=== PATIENT | female | born 1980 | race Caucasian/White ===

== ENCOUNTER 2016-08-26 08:33 | Observation (INO) | payer OTHER, SELFPAY ==
[2016-08-26 08:34] VITALS: BMI 25.9
[2016-08-26 08:42] VITALS: O2SAT 100
--- NOTE | 2016-08-26 09:03 | C.PDOC ---
History Of Present Illness 35 yr old female presents to the ER with complaints of RUQ pain for the past several months but states it has been "more severe" since 299. Patient states initially felt mid back but now is localized to the RUQ. Also reports of bilious vomiting. Patient denies fever, chest pain, SOB, diarrhea, constipation , dysuria, hematuria, weakness or numbness. VIA TRANS INTERMIT RUQ PAIN X SEV MONTHS, "MORE SEVERE" SINCE 299. PS INITIALLY FELT MID BACK, NOW LOCALIZED RUQ. +BILIOUS VOMITING. NO FEVER. PSH CSECT. 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 History/Exam Limitations: no limitations, language barrier (Mongolian ) Onset/Duration Of Symptoms: Persistent (several month ), Worse Since (299 today ) Current Symptoms Are (Timing): Still Present Location Of Pain/Discomfort: RUQ Past Medical History Reviewed: Historical Data, Nursing Documentation, Vital Signs Vital Signs: Last Vital Signs Temp 98.6 F 08/26/16 08:40 Pulse 71 08/26/16 11:21 Resp 13 08/26/16 11:21 BP 121/75 08/26/16 11:21 Pulse Ox 100 08/26/16 11:21 - [facility] Procedures LOW CERVICAL (04/16/13) Family History: States: No Known Family Hx - Social History Hx Alcohol Use: Yes Hx Substance Use: No Review Of Systems Except As Marked, All Systems Reviewed And Found Negative. Constitutional: Negative for: Fever Cardiovascular: Negative for: Chest Pain Respiratory: Negative for: Shortness of Breath Gastrointestinal: Positive for: Vomiting, Abdominal Pain (RUQ). Negative for: Diarrhea, Constipation Genitourinary: Negative for: Dysuria, Hematuria Neurological: Negative for: Weakness, Numbness Physical Exam - Physical Exam Appears: Non-toxic, In Acute Distress (Mild) Skin: Warm, Dry, No Rash Head: Atraumatic, Normacephalic Oral Mucosa: Moist Throat: Normal, No Erythema, No Exudate Chest: Symmetrical, No Tenderness Cardiovascular: Rhythm Regular, No Murmur Gastrointestinal/Abdominal: Soft, Tenderness (Mild RUQ tenderness), No Guarding , No Rebound Back: Normal Inspection, No CVA Tenderness, No Paraspinal Tenderness Extremity: Normal ROM, No Swelling Neurological/Psych: Oriented x3, Normal Speech, Normal Motor, Normal Sensation ED Course And Treatment - Laboratory Results Result Diagrams: 08/26/16 09:39 08/26/16 09:39 O2 Sat by Pulse Oximetry: 100 - CT Scan/US US - Abdomen Other Rad Studies (CT/US): Read By Radiologist, Radiology Report Reviewed CT/US Interpretation: HISTORY: RUQ PAIN, NV. COMPARISON: None. TECHNIQUE: Sonographic evaluation of the right upper quadrant of the abdomen. FINDINGS: LIVER: Measures 13.1 cm in length. Normal echogenicity of the liver parenchyma. No mass. No intrahepatic bile duct dilatation. GALLBLADDER: Cholelithiasis. There is a calculus impacted in gallbladder neck. There is no mural thickening. The gallbladder wall measures 2 mm in thickness. There is no pericholecystic fluid. No sonographic Diaz sign is demonstrated. COMMON BILE DUCT: Measures 5 mm. No stones. No dilatation. PANCREAS: Unremarkable as visualized. No mass. No ductal dilatation. RIGHT KIDNEY: Measures 10.4 cm in length. Normal echogenicity. No calculus, mass, or hydronephrosis. AORTA: No aneurysmal dilatation. IVC: Unremarkable. OTHER FINDINGS: None . IMPRESSION: Cholelithiasis with impacted calculus in gallbladder neck. No ancillary signs of cholecystitis at this time. No other significant abnormality identified. Progress - Data Reviewed Data Reviewed: Lab, Diagnostic imaging, Old records Medical Decision Making Medical Decision Making: PLAN: * US - Abdomen * CBC * Urinalysis * Morphine IVP * Zofran IVP * Sodium Chloride IV ED OBSERVATION Discharge: Yes Date of observation admission: 08/26/16 Time of observation admission: 09:00 - Observation admission statement Patient is being placed in observation because:: ABD PAIN, NV - Goals of Observation Goals of observation are:: NEG ACUTE ABD, SX IMPROVE - Progress Note Progress Note: 08/26/16 12:04 IMPROVED COMPARED TO PRIOR. ADVISED NEED TO FU W SURGERY/PMD. DC PAIN RX, REFERRAL Disposition Counseled Patient/Family Regarding: Studies Performed, Diagnosis, Need For Followup, Rx Given - Disposition Disposition: HOME/ ROUTINE Disposition Time: 12:04 Condition: IMPROVED - Clinical Impression Clinical Impression: Biliary colic - Scribe Statement The provider has reviewed the documentation as recorded by the Scribe Grazyna Mai Provider Attestation: All medical record entries made by the Madhaviibe were at my direction and personally dictated by me. I have reviewed the chart and agree that the record accurately reflects my personal performance of the history, physical exam, medical decision making, and the department course for this patient. I have also personally directed, reviewed, and agree with the discharge instructions and disposition.
[2016-08-26] MEDS ORDERED: Sodium Chloride 0.9% 1,000 ML IV ONE (09:04)
[2016-08-26 09:51] LABS: BASO % 0.3 % (0.0-2.0); EOS # 0.1 K/uL (0.0-0.7); EOS % 0.6 % (0.0-4.0); LYMPH # 0.9 K/uL (1.0-4.3); LYMPH % 11.1 % (20.0-40.0); MEAN CELL VOLUME 78.2 fL (81.0-99.0); MEAN CORPUSCULAR HEMOGLOBIN 25.4 pg (27.0-31.0); MEAN CORPUSCULAR HGB CONC 32.4 g/dL (33.0-37.0); MEAN PLATELET VOLUME 8.6 fL (7.2-11.7); MONO # 0.2 K/uL (0.0-0.8); RED CELL DISTRIBUTION WIDTH 17.4 % (11.5-14.5); WHITE BLOOD COUNT 8.1 K/uL (4.8-10.8)
[2016-08-26 09:54] LABS: RBC URINE 72 /hpf (0-3); URINE BILIRUBIN NEGATIVE (NEGATIVE); URINE BLOOD 2+ (NEGATIVE); URINE COLOR Yellow (YELLOW); URINE GLUCOSE (UA) NORMAL (Normal); URINE KETONE NEGATIVE (NEGATIVE); URINE LEUKOCYTE ESTERASE NEG Leu/uL (Negative); URINE PROTEIN NEGATIVE (NEGATIVE); URINE UROBILINOGEN NORMAL mg/dL (0.2-1.0); WBC URINE 1 /hpf (0-5)
[2016-08-26 09:55] LABS: CHLORIDE 100 mmol/L (98-107)
[2016-08-26 09:56] LABS: POTASSIUM 3.7 mmol/L (3.6-5.2); SODIUM 138 mmol/L (132-148)
[2016-08-26 09:58] LABS: ALB/GLOB RATIO 1.3 (1.0-2.1); ALKALINE PHOSPHATASE 72 U/L (38-126); ALT/SGPT 12 U/L (9-52); AST/SGOT 23 U/L (14-36); BILIRUBIN,TOTAL 0.3 mg/dL (0.2-1.3); BLOOD UREA NITROGEN 11 mg/dL (7-17); CARBON DIOXIDE 22 mmol/L (22-30); GFR AFRICAN-AMERICAN > 60; GLUCOSE,RANDOM 130 mg/dL (65-105); TOTAL PROTEIN 8.2 g/dL (6.3-8.3)
[2016-08-26 09:59] LABS: CALCIUM 8.5 mg/dl (8.6-10.4)
--- NOTE | 2016-08-26 11:10 | US ---
HISTORY: RUQ PAIN, NV COMPARISON: None. TECHNIQUE: Sonographic evaluation of the right upper quadrant of the abdomen. FINDINGS: LIVER: Measures 13.1 cm in length. Normal echogenicity of the liver parenchyma. No mass. No intrahepatic bile duct dilatation. GALLBLADDER: Cholelithiasis. There is a calculus impacted in gallbladder neck. There is no mural thickening. The gallbladder wall measures 2 mm in thickness. There is no pericholecystic fluid. No sonographic Diaz sign is demonstrated. COMMON BILE DUCT: Measures 5 mm. No stones. No dilatation. PANCREAS: Unremarkable as visualized. No mass. No ductal dilatation. RIGHT KIDNEY: Measures 10.4 cm in length. Normal echogenicity. No calculus, mass, or hydronephrosis. AORTA: No aneurysmal dilatation. IVC: Unremarkable. OTHER FINDINGS: None . IMPRESSION: Cholelithiasis with impacted calculus in gallbladder neck. No ancillary signs of cholecystitis at this time. No other significant abnormality identified.
[2016-08-26 12:14] VITALS: BP 113/71; PULSE 76; RESP 18; TEMP 97.9
== END 2016-08-26 12:05 | disposition home or self-care (01) ==
LOC: C.ER 08:33 → C.9OBSV 09:00
PROVIDERS: ADMIT Emergency Medicine; ATTEND Emergency Medicine
DX: K80.20 Calculus of gallbladder without cholecystitis without obstruction (principal)
CPT/HCPCS: 36415; 76705; 80053; 81001; 83690; 85025; 96360; 96361; 96374; G0378; J2270

== ENCOUNTER 2016-09-18 10:08 | Inpatient (IN) | payer OTHER, SELFPAY ==
[2016-09-18 10:20] VITALS: BMI 27.0
[2016-09-18] MEDS ORDERED: Sodium Chloride 0.9% 1,000 ML IV ONE (10:50)
[2016-09-18] MEDS ORDERED: Sodium Chloride 0.9% 1,000 ML ONE (10:58)
[2016-09-18 11:08] LABS: RBC URINE 40 /hpf (0-3); URINE BACTERIA RARE (<OCC); URINE BILIRUBIN NEGATIVE (NEGATIVE); URINE BLOOD 2+ (NEGATIVE); URINE COLOR Yellow (YELLOW); URINE GLUCOSE (UA) NORMAL (Normal); URINE KETONE 1+ mg/dL (NEGATIVE); URINE LEUKOCYTE ESTERASE TRACE Leu/uL (Negative); URINE PROTEIN 1+ mg/dL (NEGATIVE); URINE UROBILINOGEN NORMAL mg/dL (0.2-1.0); WBC URINE 6 /hpf (0-5)
[2016-09-18 11:13] LABS: BASO % 0.2 % (0.0-2.0); EOS % 0.4 % (0.0-4.0); HEMATOCRIT 36.6 % (34.0-47.0); LYMPH # 0.7 K/uL (1.0-4.3); LYMPH % 6.4 % (20.0-40.0); MEAN CORPUSCULAR HEMOGLOBIN 25.5 pg (27.0-31.0); MEAN CORPUSCULAR HGB CONC 32.2 g/dL (33.0-37.0); MEAN PLATELET VOLUME 8.4 fL (7.2-11.7); MONO # 0.4 K/uL (0.0-0.8); MONO % 3.9 % (0.0-10.0); PLATELET COUNT 221 K/uL (130-400); RED CELL DISTRIBUTION WIDTH 16.7 % (11.5-14.5); WHITE BLOOD COUNT 10.5 K/uL (4.8-10.8)
[2016-09-18 11:24] LABS: INR 1.1
[2016-09-18 11:25] LABS: CHLORIDE 99 mmol/L (98-107)
[2016-09-18 11:26] LABS: POTASSIUM 3.5 mmol/L (3.6-5.2); SODIUM 138 mmol/L (132-148)
[2016-09-18 11:28] LABS: ALB/GLOB RATIO 1.3 (1.0-2.1); ALKALINE PHOSPHATASE 74 U/L (38-126); AST/SGOT 24 U/L (14-36); BILIRUBIN,TOTAL 0.6 mg/dL (0.2-1.3); BLOOD UREA NITROGEN 9 mg/dL (7-17); CARBON DIOXIDE 25 mmol/L (22-30); GFR AFRICAN-AMERICAN > 60
[2016-09-18 11:29] LABS: ALT/SGPT 17 U/L (9-52); CALCIUM 8.5 mg/dl (8.6-10.4); GLUCOSE,RANDOM 133 mg/dL (65-105)
[2016-09-18 12:06] LABS: NEUTROPHIL 91 % (50-75); TOTAL CELLS COUNTED 100
--- NOTE | 2016-09-18 12:55 | C.PDOC ---
History Of Present Illness 36 year old patient presents to the ED complaining of RUQ abdominal pain since yesterday. Patient also complains of nausea and vomiting. Patient was seen here on 08/26/16 for similar symptoms. Patient had an ultrasound done with showed gallstones. Patient was discharged with medication to help with her nausea. She followed up at the clinic and is scheduled to follow up with surgery soon. Patient states the pain is 8/10 and non-radiating. Patient denies diarrhea, fever, chills, recent travel, chest pain, shortness of breath, diarrhea, constipation, or dysuria. Time Seen by Provider: 09/18/16 10:43 Chief Complaint (Nursing): Abdominal Pain History Per: Patient History/Exam Limitations: no limitations Onset/Duration Of Symptoms: Days (1) Current Symptoms Are (Timing): Still Present Context: Other Severity: Severe Pain Scale Rating Of: 8 Location Of Pain/Discomfort: RUQ Radiation Of Pain To:: None Quality Of Discomfort: "Pain" Associated Symptoms: Nausea, Vomiting Exacerbating Factors: None Alleviating Factors: None Last Bowel Movement: Today Recent travel outside of the [place] States: No Past Medical History Reviewed: Historical Data, Nursing Documentation, Vital Signs Vital Signs: Last Vital Signs Temp 97.9 F 09/18/16 17:07 Pulse 69 09/18/16 17:07 Resp 18 09/18/16 17:07 BP 100/62 09/18/16 17:07 Pulse Ox 100 09/18/16 17:13 - [facility] Procedures LOW CERVICAL (04/16/13) Family History: States: Unknown Family Hx - Social History Hx Alcohol Use: Yes Hx Substance Use: No - Immunization History Hx Tetanus Toxoid Vaccination: No Hx Influenza Vaccination: No Hx Pneumococcal Vaccination: No Review Of Systems Except As Marked, All Systems Reviewed And Found Negative. Constitutional: Negative for: Fever, Chills Cardiovascular: Negative for: Chest Pain Respiratory: Negative for: Shortness of Breath Gastrointestinal: Positive for: Nausea, Vomiting, Abdominal Pain. Negative for : Diarrhea, Constipation Genitourinary: Negative for: Dysuria Physical Exam - Physical Exam Appears: Non-toxic, No Acute Distress, Other (uncomfortable) Skin: Warm, Dry Head: Atraumatic, Normacephalic Oral Mucosa: Moist Neck: Normal ROM, Supple Chest: Symmetrical Cardiovascular: Rhythm Regular Respiratory: Normal Breath Sounds, No Rales, No Rhonchi, No Wheezing Gastrointestinal/Abdominal: Soft, Tenderness (RUQ), No Guarding, No Rebound Back: Normal Inspection Extremity: Normal ROM Neurological/Psych: Oriented x3 Gait: Steady ED Course And Treatment - Laboratory Results Result Diagrams: 09/18/16 10:57 09/18/16 10:57 O2 Sat by Pulse Oximetry: 100 (room air) Pulse Ox Interpretation: Normal - CT Scan/US Abdomen US Other Rad Studies (CT/US): Read By Radiologist (Pietro Daley MD), Radiology Report Reviewed CT/US Interpretation: HISTORY: Right upper quadrant abdominal pain. COMPARISON : 08/26/2016. TECHNIQUE: Sonographic evaluation of the right upper quadrant of the abdomen. FINDINGS: LIVER: Measures 12.7 Cm in length. Patent portal vein. Portal venous flow: Hepatopetal. Unremarkeable echogenicity of the liver parenchyma. No mass. No intrahepatic bile duct dilatation. GALLBLADDER: Cholelithiasis and gallbladder wall thickening. Gallstones identified on the prior study. Gallbladder wall thickening was not. Negative sonographic Diaz' s sign. No pericholecystic fluid identified. COMMON BILE DUCT: Measures 5.1 mm. No stones. No dilatation. PANCREAS: Unremarkable as visualized. No mass. No ductal dilatation. RIGHT KIDNEY: Measures 3.9 x 4.5 x 10.5. Cm in length. Normal echogenicity. No calculus, mass, or hydronephrosis. AORTA: No aneurysmal dilatation. IVC: Unremarkable. OTHER FINDINGS: None . IMPRESSION : Cholelithiasis/ gallbladder wall thickening. Findings suggest acute cholecystitis. The gallbladder wall thickening represents a new finding compared to 08/26/2016. Progress Note: Plan: -Labs. -IV fluids, Zofran. -Abdomen Limited US. - Reassess and disposition. Case discussed with Dr. Roberts who is aware of the plan and agrees to admit the patinet. Pending to be seen by vice president tax. Medical Decision Making Medical Decision Making: Patient seen prior for same, had gall stones, today increased pain and inability to tolerate PO. Sono showed cholecystitis. Spoke with DR. Silva. Recommends admission. Disposition Discussed With : Azael Roberts Doctor Will See Patient In The: Hospital Counseled Patient/Family Regarding: Studies Performed - Disposition Disposition: HOSPITALIZED Disposition Time: 14:56 Condition: GUARDED - Clinical Impression Clinical Impression: Cholecystitis - Scribe Statement The provider has reviewed the documentation as recorded by the Scribe Penny Castillo Provider Attestation: All medical record entries made by the Scribe were at my direction and personally dictated by me. I have reviewed the chart and agree that the record accurately reflects my personal performance of the history, physical exam, medical decision making, and the department course for this patient. I have also personally directed, reviewed, and agree with the discharge instructions and disposition.
--- NOTE | 2016-09-18 13:36 | US ---
HISTORY: Right upper quadrant abdominal pain. COMPARISON: 08/26/2016. TECHNIQUE: Sonographic evaluation of the right upper quadrant of the abdomen. FINDINGS: LIVER: Measures 12.7 Cm in length. Patent portal vein. Portal venous flow: Hepatopetal. Unremarkeable echogenicity of the liver parenchyma. No mass. No intrahepatic bile duct dilatation. GALLBLADDER: Cholelithiasis and gallbladder wall thickening. Gallstones identified on the prior study. Gallbladder wall thickening was not. Negative sonographic Diaz's sign. No pericholecystic fluid identified. COMMON BILE DUCT: Measures 5.1 mm. No stones. No dilatation. PANCREAS: Unremarkable as visualized. No mass. No ductal dilatation. RIGHT KIDNEY: Measures 3.9 x 4.5 x 10.5. Cm in length. Normal echogenicity. No calculus, mass, or hydronephrosis. AORTA: No aneurysmal dilatation. IVC: Unremarkable. OTHER FINDINGS: None . IMPRESSION: Cholelithiasis/ gallbladder wall thickening. Findings suggest acute cholecystitis. The gallbladder wall thickening represents a new finding compared to 08/26/2016.
[2016-09-18] MEDS: Lactated Ringer's 1,000 ML IV SCH (16:21)
[2016-09-18] MEDS ORDERED: Morphine 4 MG/ML VIAL IVP PRN (18:15)
[2016-09-19] MEDS: Lactated Ringer's 1,000 ML IV SCH ×3 (02:28→17:13)
[2016-09-19 07:32] LABS: BASO % 0.7 % (0.0-2.0); EOS # 0.3 K/uL (0.0-0.7); EOS % 5.7 % (0.0-4.0); LYMPH # 1.7 K/uL (1.0-4.3); MEAN CELL VOLUME 79.5 fL (81.0-99.0); MEAN CORPUSCULAR HEMOGLOBIN 25.5 pg (27.0-31.0); MEAN PLATELET VOLUME 8.5 fL (7.2-11.7); MONO # 0.4 K/uL (0.0-0.8); MONO % 7.2 % (0.0-10.0); RED CELL DISTRIBUTION WIDTH 16.8 % (11.5-14.5); WHITE BLOOD COUNT 5.2 K/uL (4.8-10.8)
[2016-09-19 07:40] LABS: INR 1.2
--- NOTE | 2016-09-19 07:51 | CP.PCM.HP ---
History of Present Illness - History of Present Illness History of Present Illness: Surgery: Dr. Roberts CC: RUQ pain HPI: Patient is a 36 y/o female who present complaining of RUq pain that started 2 night ago after dinner. She reports the pain as sharp in nature and radiating to the flank. She states she has had multiple episodes of pain similar in the past in which she has been evaluated in the ER, most recently in August 2016. She was told at that time she had gallstones and was instructed to follow up electively for further evaluation. Patient states the pain sometimes comes and goes however can become constant and severe in nature. When the pain is severe, she reports multiple episodes of vomiting, nonbilious nonbloody. She denies f/c/diarrhea/constipation. PMH: gallstones, PSH: LTCS Social: denies tobacco use, social ETOH use NKDA Present on Admission - Present on Admission Any Indicators Present on Admission: No Review of Systems - Review of Systems All systems: reviewed and no additional remarkable complaints except Review of Systems: 12 point review of systems obtained and negative unless stated in HPI Past Patient History - Past Medical History & Family History Past Medical History?: No - Past Social History Smoking Status: Never Smoked - MUSCULOSKELETAL/RHEUMATOLOGICAL Hx Falls: No - PSYCHIATRIC Hx Substance Use: No - SURGICAL HISTORY Hx Surgeries: Yes Hx Section: Yes (X1) Other/Comment: RIGHT BREAST CYST REMOVAL - ANESTHESIA Hx Anesthesia: Yes Hx Anesthesia Reactions: No Meds Allergies/Adverse Reactions: Allergies Allergy/AdvReac Type Severity Reaction Status Date / Time No Known Allergies Allergy Verified 09/18/16 10:18 Physical Exam - Constitutional Appears: Well, Non-toxic, No Acute Distress - Head Exam Head Exam: ATRAUMATIC, NORMOCEPHALIC - Eye Exam Eye Exam: EOMI, Normal appearance. absent: Scleral icterus - ENT Exam ENT Exam: Mucous Membranes Moist - Respiratory Exam Respiratory Exam: NORMAL BREATHING PATTERN. absent: Respiratory Distress - Cardiovascular Exam Cardiovascular Exam: REGULAR RHYTHM. absent: Tachycardia - GI/Abdominal Exam GI & Abdominal Exam: Soft, Tenderness (mild in RUQ). absent: Distended, Guarding, Rebound, Rigid Additional comments: pfannenstiel incision - Extremities Exam Extremities exam: Positive for: normal inspection. Negative for: calf tenderness - Back Exam Back exam: absent: CVA tenderness (L), CVA tenderness (R) - Neurological Exam Neurological exam: Alert, Oriented x3 - Psychiatric Exam Psychiatric exam: Normal Affect, Normal Mood - Skin Skin Exam: Dry, Intact, Normal Color, Warm Results - Vital Signs Recent Vital Signs: Last Vital Signs Temp 98.1 F 09/19/16 07:34 Pulse 69 09/19/16 07:34 Resp 20 09/19/16 07:34 BP 97/59 L 09/19/16 07:34 Pulse Ox 99 09/19/16 07:34 - Labs Result Diagrams: 09/19/16 07:18 09/18/16 10:57 Labs: Laboratory Results - last 24 hr 09/19/16 09/19/16 07:18 07:18 WBC 5.2 D RBC 4.28 Hgb 10.9 L Hct 34.0 MCV 79.5 L MCH 25.5 L MCHC 32.0 L RDW 16.8 H Plt Count 198 MPV 8.5 Neut % (Auto) 54.4 Lymph % (Auto) 32.0 Dewitt % (Auto) 7.2 Eos % (Auto) 5.7 H Baso % (Auto) 0.7 Neut # 2.9 Lymph # 1.7 Dewitt # 0.4 Eos # 0.3 Baso # 0.0 PT 13.5 H INR 1.2 APTT 34 Assessment & Plan - Assessment and Plan (Free Text) Assessment: 36 y/o female w/ symptomatic cholelithiasis Plan: -due to recurrent frequent severe episodes patient to be admitted -pre-op for surgery on Wednesday -NPO MN on Wednesday -ok for diet through Wednesday -IVFs -no leukocytosis or evidence of infection at this time, will hold off on abx -pain control -nausea control -daily labs -DVt prophylaxis -encourage ambulation and IS use -d/w Dr. Alejandra Pappas PGY1
[2016-09-19 07:54] LABS: CHLORIDE 102 mmol/L (98-107); POTASSIUM 3.7 mmol/L (3.6-5.2); SODIUM 137 mmol/L (132-148)
[2016-09-19 07:56] LABS: BILIRUBIN,TOTAL 0.6 mg/dL (0.2-1.3); CARBON DIOXIDE 26 mmol/L (22-30); GFR AFRICAN-AMERICAN > 60
[2016-09-19 07:57] LABS: ALB/GLOB RATIO 1.1 (1.0-2.1); ALKALINE PHOSPHATASE 56 U/L (38-126); ALT/SGPT 20 U/L (9-52); AST/SGOT 21 U/L (14-36); BLOOD UREA NITROGEN 7 mg/dL (7-17); CALCIUM 7.7 mg/dl (8.6-10.4); GLUCOSE,RANDOM 84 mg/dL (65-105); TOTAL PROTEIN 6.5 g/dL (6.3-8.3)
[2016-09-20] MEDS: Lactated Ringer's 1,000 ML IV SCH ×3 (01:35→22:11)
--- NOTE | 2016-09-20 07:49 | CP.PCM.PN ---
Subjective - Date & Time of Evaluation Date of Evaluation: 09/20/16 Time of Evaluation: 07:46 - Subjective Subjective: Surgery: Dr. Roberts Patient still complains of mild pain in the RUQ as well as nausea. She states the medicine helps with her symptoms. Patient understand she is going for surgery tomorrow and will be NPO after MN tonight. Objective - Vital Signs/Intake and Output Vital Signs (last 24 hours): Temp Pulse Resp BP Pulse Ox 98.6 F 73 20 101/63 98 09/20/16 00:16 09/20/16 00:16 09/20/16 00:16 09/20/16 00:16 09/20/16 00:16 Intake and Output: 09/20/16 09/20/16 06:59 18:59 Intake Total 2220 Balance 2220 - Medications Medications: Current Medications Famotidine (Pepcid) 20 mg IVP DAILY [facility] Lactated Ringer's (Lactated Ringer's) 1,000 mls @ 120 mls/hr IV .Q8H20M [facility] Last Admin: 09/20/16 02:58 Dose: 120 mls/hr Morphine Sulfate (Morphine) 2 mg IVP Q4H PRN PRN Reason: Pain, moderate (4-7) Morphine Sulfate (Morphine) 4 mg IVP Q4H PRN PRN Reason: Pain, severe (8-10) Ondansetron HCl (Zofran Inj) 4 mg IVP Q6 PRN PRN Reason: Nausea/Vomiting Pneumococcal Polyvalent Vaccine (Pneumovax 23 Vaccine) 0.5 ml IM .ONCE ONE Stop: 09/20/16 10:01 - Labs Labs: 09/19/16 07:18 09/19/16 07:18 PT 13.5 SECONDS (9.7-12.2) H 09/19/16 07:18 INR 1.2 09/19/16 07:18 APTT 34 SECONDS (21-34) 09/19/16 07:18 - Constitutional Appears: Non-toxic, No Acute Distress - Head Exam Head Exam: ATRAUMATIC, NORMOCEPHALIC - Eye Exam Eye Exam: EOMI, Normal appearance - ENT Exam ENT Exam: Mucous Membranes Moist - Respiratory Exam Respiratory Exam: NORMAL BREATHING PATTERN. absent: Respiratory Distress - Cardiovascular Exam Cardiovascular Exam: REGULAR RHYTHM. absent: Tachycardia - GI/Abdominal Exam GI & Abdominal Exam: Soft, Tenderness (RUQ mild ). absent: Guarding, Rigid, Rebound - Extremities Exam Extremities Exam: Normal Inspection. absent: Calf Tenderness - Neurological Exam Neurological Exam: Alert, Awake, Oriented x3 - Psychiatric Exam Psychiatric exam: Normal Affect, Normal Mood - Skin Skin Exam: Dry, Intact, Normal Color, Warm Assessment and Plan - Assessment and Plan (Free Text) Assessment: 36 y/o female w/ chronic cholecystitis Plan: -OR on Wednesday -NPO past MN tonight -am labs -IVFs -encourage OOB and IS use -further recs per Dr. Alejandra Pappas PGY1
[2016-09-20] MEDS ORDERED: Pneumococcal 23-Valent Vaccine IM ONE (10:00)
[2016-09-21] MEDS: Lactated Ringer's 1,000 ML IV SCH ×3 (02:57→21:25)
[2016-09-21 07:42] LABS: CHLORIDE 101 mmol/L (98-107)
[2016-09-21 07:43] LABS: POTASSIUM 3.8 mmol/L (3.6-5.2); SODIUM 137 mmol/L (132-148)
[2016-09-21 07:45] LABS: ALB/GLOB RATIO 1.2 (1.0-2.1); AST/SGOT 19 U/L (14-36); BILIRUBIN,TOTAL 0.7 mg/dL (0.2-1.3); BLOOD UREA NITROGEN 5 mg/dL (7-17); CARBON DIOXIDE 24 mmol/L (22-30); GFR AFRICAN-AMERICAN > 60; TOTAL PROTEIN 6.8 g/dL (6.3-8.3)
[2016-09-21 07:46] LABS: ALKALINE PHOSPHATASE 60 U/L (38-126); ALT/SGPT 22 U/L (9-52); CALCIUM 8.3 mg/dl (8.6-10.4); GLUCOSE,RANDOM 86 mg/dL (65-105)
[2016-09-21 07:50] LABS: BASO # 0.1 K/uL (0.0-0.2); EOS # 0.4 K/uL (0.0-0.7); EOS % 6.6 % (0.0-4.0); HEMATOCRIT 34.9 % (34.0-47.0); LYMPH # 2.1 K/uL (1.0-4.3); LYMPH % 36.5 % (20.0-40.0); MEAN CELL VOLUME 79.1 fL (81.0-99.0); MEAN CORPUSCULAR HEMOGLOBIN 25.5 pg (27.0-31.0); MEAN CORPUSCULAR HGB CONC 32.3 g/dL (33.0-37.0); MEAN PLATELET VOLUME 8.3 fL (7.2-11.7); MONO # 0.4 K/uL (0.0-0.8); MONO % 7.5 % (0.0-10.0); NRBC % 0.1 % (0.0-2.0); RED CELL DISTRIBUTION WIDTH 16.7 % (11.5-14.5); WHITE BLOOD COUNT 5.7 K/uL (4.8-10.8)
[2016-09-21] MEDS ORDERED: Midazolam 2 MG/2 ML VIAL ONE (12:02)
[2016-09-21] MEDS ORDERED: Propofol 10 mg/ml Inj (20 ML) ONE (12:02)
[2016-09-21] MEDS ORDERED: Bupivacaine-Epi 0.5%-1:200,000 PF Inj ONE ×2 (12:23→12:35)
[2016-09-21] MEDS ORDERED: ceFAZolin IV 1 gm in Dextrose 1 GM/50 ML BAG IVPB ONE (12:32)
[2016-09-21] MEDS ORDERED: Oxycodone/Acetaminophen 5/325 mg Tab PO PRN (13:20)
--- NOTE | 2016-09-21 13:20 | PCM.SURG1 ---
Surgeon's Initial Post Op Note - Surgeon's Notes Surgeon: Alejandra Night Clerk Auditor: Corey PGY2 Type of Anesthesia: General Endo, Local Pre-Operative Diagnosis: biliary colic Operative Findings: gallstones Post-Operative Diagnosis: same Operation Performed: laparoscopic cholecystectomy Specimen/Specimens Removed: gallbladder Estimated Blood Loss: EBL {In ML}: 10 Blood Products Given: N/A Drains Used: No Drains Post-Op Condition: Good Date of Surgery/Procedure: 09/21/16 Time of Surgery/Procedure: 13:19
[2016-09-21] MEDS ORDERED: HYDROmorphone 0.5 mg/0.5 ml ISec IVP PRN (13:21)
[2016-09-21] MEDS ORDERED: Lactated Ringer's 1,000 ML IV ONE (15:00)
--- NOTE | 2016-09-21 19:22 | OP ---
PROCEDURE DATE: 09/21/2016 PREOPERATIVE DIAGNOSES: Chronic cholecystitis and cholelithiasis. POSTOPERATIVE DIAGNOSES: Chronic cholecystitis and cholelithiasis. PROCEDURE PERFORMED: Laparoscopic cholecystectomy. FINDINGS: Gallbladder slightly distended containing multiple stones. There were adhesions involving the omentum and portion of the gallbladder. PROCEDURE: Under general anesthesia, the patient prepared and draped in sterile fashion. CO2 was in sufflated through a Veress needle inserted in the umbilicus. A 10 mm trocar was inserted in the umbi lical area. The patient was placed in a reverse Trendelenburg position, turned over towards the left side. Epigastric port, 5 mm, was inserted, then a right upper quadrant port was also inserted. The patient was placed ____ to the left side. The fundus was grasped. The adhesions were taken down. The ampulla was also grasped, traction was applied. Cystic duct and cystic arteries were then isolat ed. They were transected between Hemoclips. The gallbladder was then removed from the liver bed wit h electrocautery. It was extracted through the umbilical port. No bleeding was noted. CO2 allowed to escape from the peritoneal cavity, trocars removed, the wound closed in a routine fashion. ESTIMATED BLOOD LOSS: About 10 mL. COMPLICATIONS: None. Azael Roberts MD cc: [id number] TT: 09/21/2016 19:22:14 jn
[2016-09-22 01:26] VITALS: RESP 20; O2SAT 99
[2016-09-22] MEDS: Lactated Ringer's 1,000 ML IV SCH (05:40)
[2016-09-22 07:45] VITALS: BP 106/68; PULSE 78; TEMP 98
[2016-09-22 08:59] LABS: BASO % 0.7 % (0.0-2.0); EOS # 0.2 K/uL (0.0-0.7); EOS % 2.8 % (0.0-4.0); HEMATOCRIT 36.7 % (34.0-47.0); LYMPH # 1.4 K/uL (1.0-4.3); LYMPH % 22.3 % (20.0-40.0); MEAN CORPUSCULAR HEMOGLOBIN 25.4 pg (27.0-31.0); MEAN CORPUSCULAR HGB CONC 31.4 g/dL (33.0-37.0); MEAN PLATELET VOLUME 8.4 fL (7.2-11.7); MONO # 0.5 K/uL (0.0-0.8); MONO % 7.9 % (0.0-10.0); NRBC % 0.2 % (0.0-2.0); RED CELL DISTRIBUTION WIDTH 16.7 % (11.5-14.5); WHITE BLOOD COUNT 6.5 K/uL (4.8-10.8)
[2016-09-22 09:05] LABS: CHLORIDE 103 mmol/L (98-107); SODIUM 132 mmol/L (132-148)
[2016-09-22 09:06] LABS: POTASSIUM 3.6 mmol/L (3.6-5.2)
[2016-09-22 09:08] LABS: ALB/GLOB RATIO 1.1 (1.0-2.1); ALKALINE PHOSPHATASE 59 U/L (38-126); AST/SGOT 88 U/L (14-36); BILIRUBIN,TOTAL 0.7 mg/dL (0.2-1.3); CARBON DIOXIDE 19 mmol/L (22-30); GFR AFRICAN-AMERICAN > 60; TOTAL PROTEIN 6.3 g/dL (6.3-8.3)
[2016-09-22 09:10] LABS: ALT/SGPT 43 U/L (9-52); BLOOD UREA NITROGEN 4 mg/dL (7-17); CALCIUM 7.9 mg/dl (8.6-10.4); GLUCOSE,RANDOM 83 mg/dL (65-105)
== END 2016-09-22 14:30 | disposition home or self-care (01) | DRG 494 ==
LOC: C.ER 10:08 → C.9E 15:07 → C.3T 16:40
PROVIDERS: ADMIT Surgery; ATTEND Surgery
PROC: 0FT44ZZ Resection of Gallbladder, Percutaneous Endoscopic Approach (ICD-10-PCS; principal; 2016-09-21 12:25)
DX: K80.10 Calculus of gallbladder with chronic cholecystitis without obstruction (principal)

== ENCOUNTER 2017-05-04 19:35 | Emergency (ER) | payer OTHER ==
[2017-05-04 19:36] VITALS: BMI 25.5
[2017-05-04 19:50] VITALS: BP 111/72; PULSE 82; TEMP 97.8; O2SAT 100
--- NOTE | 2017-05-04 20:03 | C.PDOC ---
History Of Present Illness 36 yr old female presents to the ER for evaluation of head injury and facial contusions sustained earlier today at 5:30om, after sustaining a mechanical fall. Patient reports she fell outside, hitting her right side of face, sustaining a abrasion and sustaining dental injury. Patient admits to being seen by the dentist early today and had her dental injury fixed. Patient currently presents for evaluation of mild headache and facial contusions. Denies LOC, syncope, denies worse headache of life, vision changes, focal deficits, nausea, vomiting, neck pain, CP, SOB, abd. pain, denies deformity, weakness to B/L UEs and LEs. Ambulate to ED for evaluation, not in any apparent distress. - HPI Time Seen by Provider: 05/04/17 19:55 Chief Complaint (Nursing): Trauma History Per: Patient History/Exam Limitations: no limitations Onset/Duration Of Symptoms: Sudden Onset (5:30 PM ) Past Medical History Reviewed: Historical Data, Nursing Documentation, Vital Signs Vital Signs: Last Vital Signs Temp 97.8 F 05/04/17 19:46 Pulse 82 05/04/17 19:46 Resp 18 05/04/17 19:46 BP 111/72 05/04/17 19:46 Pulse Ox 100 05/04/17 21:07 Surgical History: Cholecystectomy - [facility] Procedures LOW CERVICAL (04/16/13) RESECTION OF GALLBLADDER, PERCUTANEOUS ENDOSCOPIC APPROACH (09/18/16) Family History: States: No Known Family Hx - Social History Hx Alcohol Use: No Hx Substance Use: No - Immunization History Hx Tetanus Toxoid Vaccination: No Hx Influenza Vaccination: No Hx Pneumococcal Vaccination: No Review Of Systems Except As Marked, All Systems Reviewed And Found Negative. Constitutional: Positive for: Other ((+) Facial contusions. Abrasion to the right side of face.) Eyes: Negative for: Vision Change Gastrointestinal: Negative for: Nausea, Vomiting Musculoskeletal: Negative for: Neck Pain Neurological: Positive for: Headache (Not severe headache), Dizziness. Negative for: Weakness, Numbness Physical Exam - Physical Exam Appears: Well, Non-toxic, No Acute Distress Skin: Warm, Dry, No Rash Head: Normacephalic, Abrasion (Abrasion to the right side of face overlying zygomatus bone with mild edema. No palpable deformity.) Eye(s): bilateral: PERRL, EOMI Ear(s): Bilateral: Normal Nose: No Flaring, No Discharge, No Deformity, Other (Right side nasal mucosa edema) Oral Mucosa: Moist, No Drooling, No Trismus Tongue: Normal Appearing Lips: Normal Appearing Teeth: Tender To Palpation (Rightand Left central incisor partial avulsion) Throat: No Drooling Neck: Normal ROM, Trachea Midline, No Midline Cervical Tenderness, No Paracervical Tenderness, No Step Off Deformity, Supple Chest: Symmetrical, No Deformity, No Tenderness Cardiovascular: Rhythm Regular, No Murmur Respiratory: No Rales, No Rhonchi, No Stridor, No Wheezing Gastrointestinal/Abdominal: Normal Exam, Soft, No Tenderness, No Guarding, No Rebound Back: No Vertebral Tenderness Extremity: Normal ROM, No Deformity, No Swelling Neurological/Psych: Oriented x3, Normal Speech, Normal Motor, Normal Sensation, Normal Reflexes ED Course And Treatment O2 Sat by Pulse Oximetry: 100 (RA) Pulse Ox Interpretation: Normal - CT Scan/US CT - Head Other Rad Studies (CT/US): Read By Radiologist, Radiology Report Reviewed CT/US Interpretation: EXAM: CT Head Without Intravenous Contrast. CLINICAL HISTORY: 36 years old, female; Injury or trauma; Fall; Initial encounter; Concussion / head injury. TECHNIQUE: Axial computed tomography images of the head/brain without intravenous contrast. All CT scans at. this facility use one or more dose reduction techniques, viz.: automated exposure control; ma/kV. adjustment per patient size (including targeted exams where dose is matched to indication; i.e. head);. or iterative reconstruction technique. COMPARISON : No relevant prior studies available. FINDINGS: Brain: No intracranial hemorrhage. No mass. No edema. Ventricles: No hydrocephalus. Bones/joints: No calvarial fracture. Mastoid air cells: No mastoid effusion. IMPRESSION: 1. No intracranial hemorrhage. 2. See facial bone CT report for additional details. CT - Maxillofacial Other Rad Studies (CT/US): Read By Radiologist, Radiology Report Reviewed CT/US Interpretation: EXAM: CT Maxillofacial Without Intravenous Contrast. CLINICAL HISTORY: 36 years old, female; Injury or trauma; Fall; Initial encounter; Abrasion; Cheek bone; Right. TECHNIQUE: Axial computed tomography images of the face without intravenous contrast. All CT scans at this. facility use one or more dose reduction techniques, viz.: automated exposure control; ma/kV. adjustment per patient size (including targeted exams where dose is matched to indication; i.e. head);. or iterative reconstruction technique. Coronal and sagittal reformatted images were created and reviewed. COMPARISON: No relevant prior studies available. FINDINGS: Bones/joints: Degenerative changes of cervical spine. No acute fracture. Soft tissues: RIGHT periorbital/maxillary soft tissue swelling. Orbits: Unremarkable as visualized. Sinuses: Scattered mild mucosal thickening. Small air-fluid level within LEFT maxillary sinus. Dental: Dental caries. IMPRESSION: 1. No fracture. 2. Sinus disease. 3. Incidental/non-acute findings are described above Progress Note: On re-evaluation, pt is afebrile, hemodynamicaly stable. Non- toxic. PulseOx 100% RA. Head: right side facial contusion, no deformity. ENT : (+) upper incisor partial avulsion. NEck: Supple, (-) midline tenderness. LUngs: CTA B/L, BS equal B/L. Abd: Benign. FAROM of B/L UEs and LEs. Neurologicaly intact. CT head and max/face review, no acute ITC findings, (+) sinusitis. Pt advised OBS 48 hrs for any sign of head injury, advised on course of ds. ref. to F/u with PMD, Dentist in 2-3 days for re-eavl. return to ED if any worsening or new changes. Medical Decision Making Medical Decision Making: PLAN: * CT - Head, Maxillofacial * POC * Tylenol PO * Zofran PO Disposition Counseled Patient/Family Regarding: Studies Performed, Diagnosis, Need For Followup, Rx Given - Disposition Referrals: [facility] [Outside] Disposition: HOME/ ROUTINE Disposition Time: 21:10 Condition: STABLE Additional Instructions: OBSERVE 48 HOURS FOR ANY SIGN OF HEAD INJURY- INTRACTABLE HEADACHE, VOMITING, LETHARGY OR ANY OTHER NEW CHANGES-RETURN TO ED IMMEDIATELY FOR RE-EVALUATION. AVOID ANY PHYSICAL ACTIVITY FOR 1 WEEK TAKE MEDICATION PRESCRIBED FOLLOW UP WITH PMD IN 2-3 DAYS FOR RE-EVALUATION. Prescriptions: Amoxicillin/Clavulanate [Augmentin 875 MG-125 MG] 1 tab PO BID #14 tab Fluticasone Nasal [Flonase] 2 spray NS DAILY #1 spr Instructions: Head Injury (ED), Facial Contusion (ED), Sinusitis (ED) Forms: [employer] (Portuguese) Print Language: LATVIAN - Clinical Impression Clinical Impression: Head injury, Facial contusion, Sinusitis - PA / [employer] / Resident Statement MD/DO has reviewed & agrees with the documentation as recorded. - Scribe Statement The provider has reviewed the documentation as recorded by the Scribe Grazyna Mai All medical record entries made by the Scribe were at my direction and personally dictated by me. I have reviewed the chart and agree that the record accurately reflects my personal performance of the history, physical exam, medical decision making, and the department course for this patient. I have also personally directed, reviewed, and agree with the discharge instructions and disposition.
--- NOTE | 2017-05-04 21:02 | CT ---
EXAM: CT Head Without Intravenous Contrast CLINICAL HISTORY: 36 years old, female; Injury or trauma; Fall; Initial encounter; Concussion / head injury TECHNIQUE: Axial computed tomography images of the head/brain without intravenous contrast. All CT scans at this facility use one or more dose reduction techniques, viz.: automated exposure control; ma/kV adjustment per patient size (including targeted exams where dose is matched to indication; i.e. head); or iterative reconstruction technique. COMPARISON: No relevant prior studies available. FINDINGS: Brain: No intracranial hemorrhage. No mass. No edema. Ventricles: No hydrocephalus. Bones/joints: No calvarial fracture. Mastoid air cells: No mastoid effusion. IMPRESSION: 1. No intracranial hemorrhage. 2. See facial bone CT report for additional details.
--- NOTE | 2017-05-04 21:05 | CT ---
EXAM: CT Maxillofacial Without Intravenous Contrast CLINICAL HISTORY: 36 years old, female; Injury or trauma; Fall; Initial encounter; Abrasion; Cheek bone; Right TECHNIQUE: Axial computed tomography images of the face without intravenous contrast. All CT scans at this facility use one or more dose reduction techniques, viz.: automated exposure control; ma/kV adjustment per patient size (including targeted exams where dose is matched to indication; i.e. head); or iterative reconstruction technique. Coronal and sagittal reformatted images were created and reviewed. COMPARISON: No relevant prior studies available. FINDINGS: Bones/joints: Degenerative changes of cervical spine. No acute fracture. Soft tissues: RIGHT periorbital/maxillary soft tissue swelling. Orbits: Unremarkable as visualized. Sinuses: Scattered mild mucosal thickening. Small air-fluid level within LEFT maxillary sinus. Dental: Dental caries. IMPRESSION: 1. No fracture. 2. Sinus disease. 3. Incidental/non-acute findings are described above.
[2017-05-04] MEDS ORDERED: Amoxicillin-Clav 875-125 mg Tab PO STA (21:10)
[2017-05-04] MEDS ORDERED: Amoxicillin-Clav 875-125 mg Tab PO ONE (21:14)
[2017-05-04] MEDS ORDERED: Bacitracin 500 Units/gm Oint Foilpak UD ONE (21:29)
[2017-05-04 22:00] VITALS: RESP 20
== END 2017-05-04 21:59 | disposition home or self-care (01) ==
LOC: C.ER 19:35
DX: S00.83XA Contusion of other part of head, initial encounter (principal); W19.XXXA Unspecified fall, initial encounter; Z23 Encounter for immunization; J32.9 Chronic sinusitis, unspecified